=== PATIENT | female | born 1975 | race Caucasian/White ===

== ENCOUNTER 2019-09-09 05:25 | Inpatient (IN) | payer OTHER ==
[~2019-09-09] VITALS: Ht 170.2 cm; Wt 76.5 kg
[2019-09-09] MEDS ORDERED: RINGERS SOLUTION,LACTATED 1,000 ML IV ONE ×2 (05:32→06:00)
[2019-09-09] MEDS ORDERED: CeFAZolin 2 GM/DEXTROSE 50 ML IV ONE ×2 (05:32→06:00)
[2019-09-09 06:28] LABS: BASOPHILS % (AUTO) 0.7 % (0.0-2.0); EOSINOPHILS % (AUTO) 6.3 % (1.0-6.0); HEMATOCRIT 40.5 % (36-46); HEMOGLOBIN 13.6 g/dL (12.0-16.0); LYMPHOCYTES # (AUTO) 2.7 K/uL (1.0-4.8); LYMPHOCYTES % (AUTO) 30.3 % (22.0-44.0); MEAN CORPUSCULAR HEMOGLOBIN 31.4 pg (26.0-34.0); MEAN CORPUSCULAR HGB CONC 33.6 G/dL (31.0-37.0); MEAN CORPUSCULAR VOLUME 94 fL (80-100); MONOCYTES # (AUTO) 0.8 K/uL (0.1-1.0); MONOCYTES % (AUTO) 8.6 % (2.0-9.0); NEUTROPHILS # (AUTO) 4.8 K/uL (1.8-7.7); NEUTROPHILS % (AUTO) 54.1 % (40.0-70.0); PLATELET COUNT (AUTO) 302 K/uL (150-450); RED BLOOD CELL COUNT(AUTO) 4.33 MIL/uL (4.00-5.20); RED CELL DISTRIBUTION WIDTH 13.2 % (11.5-14.5)
[2019-09-09 06:59] LABS: ANION GAP 7 mmol/L (8-16); CALCIUM, TOTAL 8.8 mg/dL (8.8-10.5); CARBON DIOXIDE 27 mmol/L (22-29); CHLORIDE 106 mmol/L (98-107); CREATININE 0.85 mg/dL (0.60-1.30); GLOMERULAR FILTR. RATE CALC > 60 mL/min (>60); GLUCOSE,RANDOM 110 mg/dL (70-110); POTASSIUM 4.5 mmol/L (3.5-5.1); SODIUM SERUM 140 mmol/L (136-145); UREA NITROGEN, BLOOD 14 mg/dL (7-18)
[2019-09-09] MEDS ORDERED: VANCOMYCIN HCL 1 GM/VIAL ONE (07:02)
[2019-09-09 07:05] LABS: ALANINE AMINOTRANSFERASE 26 U/L (12-78); ALBUMIN 3.6 g/dL (3.4-5.0); ALKALINE PHOSPHATASE 30 U/L (46-116); ASPARTATE AMINOTRANSFERASE 15 U/L (15-37); BILIRUBIN,TOTAL 0.2 mg/dL (0.1-1.0); TOTAL PROTEIN, SERUM 6.6 g/dL (6.4-8.2)
[2019-09-09 07:06] LABS: INR 1.1 (0.9-1.1); PROTHROMBIN TIME 10.8 SEC (9.4-11.6)
[2019-09-09] MEDS ORDERED: DiphenhydrAMINE HCL 50 MG/ML VIAL IVP PRN (07:45)
[2019-09-09] MEDS ORDERED: ZOLPIDEM TARTRATE 10 MG TABLET PO PRN (07:45)
[2019-09-09] MEDS ORDERED: MAG HYDROX/AL HYDROX/SIMETH 30 ML SUSP UDCUP PO PRN (07:45)
[2019-09-09] MEDS ORDERED: DEXAMETHASONE SOD PHOS 4 MG/ML VIAL IVP PRN (07:45)
[2019-09-09] MEDS ORDERED: MIDAZOLAM HCL 2 MG/2 ML VIAL IVP PRN (09:00)
[2019-09-09] MEDS ORDERED: NALOXONE HCL 0.4 MG/ML VIAL IVP PRN (09:00)
[2019-09-09] MEDS: DOCUSATE SODIUM 100 MG CAPSULE PO SCH ×2 (09:00→21:01)
[2019-09-09] MEDS ORDERED: ONDANSETRON HCL 4 MG/2 ML VIAL IVP PRN (09:00)
[2019-09-09] MEDS ORDERED: HYDROmorphone 2 MG/ML SYRINGE IVP PRN ×4 (09:00→11:15)
[2019-09-09] MEDS ORDERED: HYDROmorphone 2 MG/ML SYRINGE ONE (10:15)
[2019-09-09 11:18] VITALS: BP 113/73
[2019-09-09] MEDS: ACETAMINOPHEN 1000 MG/ISO-OSM 100 ML IV SCH ×3 (11:41→23:39)
[2019-09-09] MEDS ORDERED: FentaNYL CITRATE-PF 100 MCG/2 ML VIAL IVP ONE (12:00)
[2019-09-09] MEDS ORDERED: LIDOCAINE/PF 2% 5 ML VIAL INJ ONE (12:00)
[2019-09-09] MEDS ORDERED: PROPOFOL 1% 20 ML VIAL IVP ONE (12:00)
[2019-09-09] MEDS ORDERED: MIDAZOLAM HCL 2 MG/2 ML VIAL IVP ONE (12:00)
[2019-09-09] MEDS ORDERED: ROCURONIUM BROMIDE 10 MG/ML 5 ML VIAL IVP ONE (12:00)
[2019-09-09] MEDS ORDERED: DEXAMETHASONE SOD PHOS 4 MG/ML VIAL IVP ONE (12:00)
[2019-09-09] MEDS ORDERED: 0.9% SODIUM CHLORIDE 10 ML VIAL IVP ONE (12:00)
[2019-09-09 15:19] VITALS: BP 119/73
[2019-09-09] MEDS: BENZOCAINE/MENTHOL LOZENGE PO PRN ×2 (16:20→21:01)
[2019-09-09] MEDS: HYDROmorphone 2 MG/ML SYRINGE IVP PRN ×2 (16:58→21:36)
[2019-09-09 20:22] VITALS: BP 119/78
[2019-09-09 23:40] VITALS: BP 127/81
[2019-09-10] MEDS: HYDROmorphone 2 MG/ML SYRINGE IVP PRN ×2 (01:50→08:50)
[2019-09-10 05:01] VITALS: BP 118/82
[2019-09-10] MEDS: ACETAMINOPHEN 1000 MG/ISO-OSM 100 ML IV SCH (05:06)
[2019-09-10] MEDS: BENZOCAINE/MENTHOL LOZENGE PO PRN (05:37)
[2019-09-10 08:17] VITALS: BP 116/79
[2019-09-10] MEDS: DOCUSATE SODIUM 100 MG CAPSULE PO SCH (08:45)
[2019-09-10 11:34] VITALS: BP 119/78
== END 2019-09-10 12:35 | disposition home or self-care (01) | DRG 473 ==
LOC: 4E 05:25 → 6N 14:11
PROVIDERS: ADMIT Orthopaedic Surgery Orthopaedic Surgery of the Spine; ATTEND Orthopaedic Surgery Orthopaedic Surgery of the Spine
PROC: 0RG20A0 Fusion of 2 or more Cervical Vertebral Joints with Interbody Fusion Device, Anterior Approach, Anterior Column, Open Approach (ICD-10-PCS; 2019-09-09)
PROC: 0RB30ZZ Excision of Cervical Vertebral Disc, Open Approach (ICD-10-PCS; principal; 2019-09-09 07:30)
DX: M50.222 Other cervical disc displacement at C5-C6 level (principal); M48.02 Spinal stenosis, cervical region; M50.223 Other cervical disc displacement at C6-C7 level
CPT/HCPCS: 87081; 97116; 97161; 97165; 97535; G0238; J0131; J0690; J1100; J1170; J2250; J2704; J3010; J3370; J3490; J7120